=== PATIENT | female | born 1980 | race Caucasian/White ===

== ENCOUNTER 2017-05-22 21:50 | Emergency (ER) | payer OTHER ==
[~2017-05-22] VITALS: Ht 157.5 cm; Wt 77.3 kg
[2017-05-22 21:56] VITALS: TEMP 98.5
[2017-05-22] MEDS ORDERED: ALEVE 220MG220 MG PO (22:01)
[2017-05-22] MEDS ORDERED: MULTIVITAMIN1 CTB PO (22:01)
[2017-05-22] MEDS ORDERED: LEVOXYL0.112 MG PO (22:01)
[2017-05-22 22:24] VITALS: BP 129/67
[2017-05-22 22:44] LABS: BASO # 0.1 (0.0-0.2); BASO % 0.7 % (0.0-2.0); EOS # 0.3 (0.0-0.7); EOS % 3.5 % (0-4.0); GRAN # 4.8 (1.4-6.5); GRAN % 60.4 % (42.2-75.2); HEMATOCRIT 39.4 % (37.0-47.0); HEMOGLOBIN 13.6 g/dl (12.5-16.0); LYMPH # 2.2 (1.2-3.4); LYMPH % 26.8 % (20.0-51.0); MEAN CELL VOLUME 95 fl (80.0-100.0); MEAN CORPUSCULAR HEMOGLOBIN 33 pg (27.0-31.0); MEAN CORPUSCULAR HGB CONC 35 g/dl (33.0-37.0); MEAN PLATELET VOLUME 9.3 fl (7.4-10.4); MONO # 0.7 (0.1-0.6); MONO % 8.4 % (1.7-9.3); PLATELET COUNT 266 K/mm3 (130-400); RED BLOOD COUNT 4.16 M/mm3 (4.10-5.30); REDCELL DISTRIBUTION WIDTH-CV 12.1 % (11.5-14.5)
[2017-05-23] MEDS ORDERED: SPRINTEC 35 MCG1 TAB PO (00:02)
[2017-05-23] MEDS ORDERED: ZOFRAN 4MG T4 MG/TAB PO (00:04)
[2017-05-23 00:58] VITALS: PULSE 86
== END 2017-05-23 00:58 | disposition home or self-care (01) ==
LOC: COL.ER 21:50
PROVIDERS: Emergency Medicine
DX: N93.9 Abnormal uterine and vaginal bleeding, unspecified (principal); E03.9 Hypothyroidism, unspecified; Z98.890 Other specified postprocedural states
CPT/HCPCS: J7030